=== PATIENT | female | born 1985 | race African-American/Black ===

== ENCOUNTER 2018-06-13 21:13 | Observation (INO) | payer OTHER ==
[~2018-06-13] VITALS: Ht 162.6 cm; Wt 53.0 kg
[2018-06-13] MEDS ORDERED: MVI, ADULT NO.1 10 ML in SODIUM CHLORIDE 0.9% 1,000 ML IV SCH ×2 (22:00)
[2018-06-13] MEDS ORDERED: PREN1TAB78 MT (23:30)
[2018-06-13] MEDS ORDERED: FERR325T22 MT (23:30)
== END 2018-06-14 00:20 | disposition home or self-care (01) ==
LOC: 8 EST LDRP 21:13
PROVIDERS: ADMIT Specialist; ATTEND Specialist
DX: O26.893 Other specified pregnancy related conditions, third trimester (principal); R55 Syncope and collapse; O99.013 Anemia complicating pregnancy, third trimester; Z3A.00 Weeks of gestation of pregnancy not specified
CPT/HCPCS: 36415; 80051; 96365; 96366; 99281; G0378; J3490; J7030